=== PATIENT | male | born 1985 | race African-American/Black ===

== ENCOUNTER 2024-10-12 22:31 | Emergency (ER) | payer SELFPAY ==
[2024-10-12 22:33] VITALS: BP 138/89
[2024-10-12 23:34] VITALS: BMI 26.6
--- NOTE | 2024-10-12 23:48 | ED.GENMED ---
History of Present Illness
General
Chief Complaint: Abdominal Pain
Source: patient
Exam Limitations: none
Time Seen by Provider: 10/12/24 22:58
History of Present Illness
History of Present Illness:
This is a 39 year old male that comes in with c/o headache and abd pain. States that this has been going on for a couple of days. States that he can't eat. States that he is occasionally SOB, and that his headache is on the top of his head. States
that he is walking from [place] to [place]. Denies any fever, chills, chest pain, nausea, vomiting, diarrhea, dizziness, urinary burning.
Past History
Past History
ED Past Medical History: Psychiatric (Schizophrenia); Negative Asthma, HTN, Hypercholesterolemia or NIDDM
ED Past Surgical History: None
Social History
Tobacco: Non-smoker
Alcohol: None
Personal: Single
Living: homeless
Review of Systems
Review of Systems
All Other Systems: ROS reviewed and negative except as documented in HPI and ROS
Constitutional: Reports no symptoms; Denies fever or chills
EENT: Reports no symptoms
Respiratory: Reports trouble breathing (occasional); Denies cough
Cardiac: Denies chest pain
ABD/GI: Reports abdominal pain; Denies nausea, vomiting or diarrhea
: Reports no symptoms; Denies dysuria, frequency or urgency
Musculoskeletal: Reports no symptoms
Skin: Reports no symptoms
Neurological: Reports headache; Denies dizzy
Psychiatric: Reports no symptoms
Phy Exam
General Physical Exam
General Presentation: no apparent distress
General age: appears stated age
General Skin: warm and dry
General Habitus: poor hygiene
General Mental: alert
General Hydration: appears well hydrated
ENT Exam
ENT Exam: TM's normal, pharynx normal and neck supple
Eye Exam
Eye Exam: EOMI
Cardiovascular Exam
Cardiovascular Exam: regular rate/rhythm, no edema, no murmur and normal peripheral pulses
Pulmonary Exam
Pulmonary Exam: lungs clear, no respiratory distress, no rales, chest non tender, no crackles, no rhonchi, no wheezing and no cough
Gastrointestinal Exam
Gastrointestinal Exam: normal bowel sounds, soft, no organomegaly, no pulsatile mass, non distended and tender (Generalized tenderness with palpation)
Musculoskeletal Exam
Musculoskeletal Exam: full ROM and no edema
Skin Exam
Skin Exam: normal color, warm/dry, no rash and no petechia
Psychiatric Exam
Psychiatric Exam: normal mood/affect
Course
Orders/Labs/Results
Orders:
Orders
10/12/24 23:38
Complete Blood Count/With Diff Urgent
Comprehensive Metabolic Panel Urgent
Lipase Urgent
Comment: ADD ON
10/12/24 23:48
0.9% Sodium Chloride 1000 ml [Nss] 1,000 ml IV BOLUS
Acetaminophen [Tylenol] 1,000 mg PO NOW STA
10/12/24 23:49
Add On- LAB Urgent
Tests Added?: lipase
Urinalysis Reflex To Culture Urgent
Date Specimen was Collected: 10/13/24
Time Specimen was Collected: 00:04
10/13/24 01:15
CT Abd/pelvis W Iv Cont Urgent
Reason For Exam: generalized abd tenderness
Abnormal Lab Results
10/12/24
23:38
RBC 3.84 L 10^6/uL
(4.70-6.10)
Hgb 12.0 L g/dL
(13.0-18.0)
Hct 35.9 L %
(39.0-52.0)
MCH 31.3 H pg
(27.0-31.0)
Monocytes % 10.4 H %
(1.7-9.3)
Eosinophils % 8.9 H %
(0-6)
Glucose 120 H mg/dl
(70-99)
Total Bilirubin < 0.1 L mg/dl
(0.2-1.3)
Total Protein 5.8 L g/dl
(6.3-8.2)
10/12/24 23:38
10/12/24 23:38
H/h slightly low. Hyperglycemia. Total sivan is low. Total protein slightly low. Lipase normal at 76, Urine negative or infection.
Vital Signs
Initial and Last Documented VS:
Initial Vital Signs
Temp Pulse Resp BP Pulse Ox
99.4 F 81 18 138/89 99
10/12/24 22:33 10/12/24 22:33 10/12/24 22:33 10/12/24 22:33 10/12/24 22:33
Last Documented Vital Signs
Temp Pulse Resp BP Pulse Ox
98.1 F 81 18 138/89 99
10/12/24 23:08 10/12/24 22:33 10/12/24 22:33 10/12/24 22:33 10/12/24 22:33
MDM/Problems Addressed
Differential Diagnosis Includes:
Headache, enteritis,
MDM/Problems Addressed:
This is a 39 year old male that comes in with c/o headache and abd pain. States that he has not been able to eat in a few days. States that he also has a headache.
will check labs, CT abd and given Tylenol for his headache.
Back into see patient. Patient was sleeping soundly. Arouses easily. Explained that his CT scan is negative for any acute process but there is constipation. Patient to increase his water intake to 8-8oz glasses daily. Will feed patient before
discharge.
Chronic conditions affecting care:
NA
Acute Exacerbation and/or Progression of Chronic Illness:
NA
*Radiology
Radiology exam reviewed: radiology read reviewed (CT night hawk- No acute abnormality within the abdomen or pelvis. No bowel obstruction. Normal gallbladder and appendix. Incidentals: Moderate stool burden. fecalized loops of small bowel suggestive
of slow transit. No obstructing uropathy. enhancing lesion within the right liver, could represent) and all reviewed NAD by ED Provider (CT cont- hemangioma. No abdominal aortic aneurysm. No acute osseous abnormality. No acute abnormality within the
visualized lungs. No acute abnormality within the visualized soft tissues. )
*Pulse Oximetry
Patient hypoxic: no
*EKG
Interpreted by ED Provider?: NA
Rate: EKG- N/A
*Limited Radiology Technician Interpretation
Rate: Limited Radiology Technician- N/A
*Critical Care Note
Total Time (30-74mins, 75-104mins- exclusive of procedures): Not Applicable
ED Attending Note
-
Portions of this chart may have been created with voice recognition software.� Occasional wrong word or��sound alike� substitutions may have occurred due to the inherent limitations of voice recognition software.
Discharge Plan
Departure
Patient Disposition: Home (Routine Discharge)
Date of Disposition: 10/13/24
Time of Disposition: 02:29
Patient with high blood pressure during this ER visit?: Yes
Condition: Good
Covid-19: Not Applicable
Discharge Problem:
Headache, Abdominal pain
Instructions: Headache, Adult ED, Abdominal Pain, BLOOD PRESSURE
Referrals:
NONE,* [Family Provider] -
Activity Restrictions/Additional Instructions:
As discussed, your blood work shows that your Hgb is slightly low. Your blood sugar is elevated. Please increase your water intake to 8-8oz glasses daily. Your CT is negative for any acute process of the abdomen. You will need to get a family
doctor when you get to [place]. IF YOU HAVE ANY OTHER CONCERNS PLEASE RETURN TO THE EMERGENCY ROOM.
Interventions
Interventions:
*Risk Screen - Suicide Last Done: 10/12/24 22:33
*ED COVID-19 Vaccine History Last Done: 10/12/24 22:35
[facility] Assessment Last Done: 10/12/24 23:00
Discharge Date and Time
Print Language: SETSWANA
[2024-10-12 23:53] LABS: % Basophils 0.9 % (0-2); % Eosinophils 8.9 % (0-6); % Immature Granulocytes 0.2 % (0-0.5); % Lymphocytes 36.8 % (20.5-51.1); % Monocytes 10.4 % (1.7-9.3); % Neutrophils 42.8 % (42.2-75.2); Absolute Basophils 0.1 10^3/uL (0-0.2); Absolute Eosinophils 0.5 10^3/uL (0-0.7); Absolute Lymphocytes 1.9 10^3/uL (1.2-3.4); Absolute Monocytes 0.6 10^3/uL (0.1-0.6); Absolute Neutrophils 2.3 10^3/uL (1.4-6.5); Hematocrit 35.9 % (39.0-52.0); Mean Corp Hgb Conc. 33.4 g/dL (33.0-37.0); Mean Corpuscular Hgb 31.3 pg (27.0-31.0); Mean Corpuscular Volume 93.5 fL (80.0-94.0); Mean Platelet Volume 9.4 fL (7.4-10.4); Nucleated Red Blood Cells % 0 % (-); Platelet Count 168 10^3/uL (130-400); Red Blood Cell Count 3.84 10^6/uL (4.70-6.10); White Blood Cell Count 5.3 10^3/uL (4.8-10.8)
[2024-10-13 00:03] LABS: ALT (SGPT) 23 U/L (0-50); AST (SGOT) 31 U/L (17-59); Albumin 3.5 g/dl (3.5-5.0); Alkaline Phosphatase 48 U/L (38-126); Blood Urea Nitrogen 16 mg/dl (9-20); Calcium 9.1 mg/dl (8.4-10.2); Carbon Dioxide 28 mmol/L (22-30); Chloride 103 mmol/L (98-107); Estimated Creatinine Clearance 120 ml/min; Glucose 120 mg/dl (70-99); Lipase 76 U/L (23-300); Potassium 3.9 mmol/L (3.5-5.1); Sodium 138 mmol/L (135-145); Total Bilirubin < 0.1 mg/dl (0.2-1.3); Total Protein 5.8 g/dl (6.3-8.2); eGFR > 60.00
[2024-10-13] MEDS: TYLENOL 1000 MG PO (00:10)
[2024-10-13] MEDS: NSS 1000 IV (00:11)
[2024-10-13 00:30] LABS: Urine Albumin Negative (Neg - Trace); Urine Bilirubin Negative (Negative); Urine Character Clear (Clear); Urine Color Yellow; Urine Glucose Negative (Negative); Urine Ketone Negative (Negative); Urine Leukocyte Negative (Negative); Urine Nitrite Negative (Negative); Urine Occult Blood Negative (Negative); Urine Specific Gravity 1.015 (<1.030); Urine Urobilinogen Negative (Neg - 1+)
[2024-10-13 02:34] VITALS: BP 115/77
== END 2024-10-13 03:33 | disposition home or self-care (01) ==
LOC: EMR 22:31
PROVIDERS: Clinical Nurse Specialist Family Health; EMERGENCY PHYSICIAN Student in an Organized Health Care Education/Training Program
DX: R51.9 Headache, unspecified (principal); R10.9 Unspecified abdominal pain; I10 Essential (primary) hypertension; F20.9 Schizophrenia, unspecified
CPT/HCPCS: 99285; 96360; 74177; 80053; 81003; 83690; 85025; Q9967

== ENCOUNTER 2024-10-18 22:09 | Emergency (ER) | payer SELFPAY ==
[2024-10-18 22:20] VITALS: BP 124/82
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
== END 2024-10-18 23:36 | disposition left against medical advice (07) ==
LOC: EMR 22:09
PROVIDERS: EMERGENCY PHYSICIAN Emergency Medicine
DX: M54.50 Low back pain, unspecified (principal); W01.0XXA Fall on same level from slipping, tripping and stumbling without subsequent striking against object, initial encounter; R51.9 Headache, unspecified; R10.9 Unspecified abdominal pain; Z59.00 Homelessness unspecified; Z53.29 Procedure and treatment not carried out because of patient's decision for other reasons
CPT/HCPCS: 99281